=== PATIENT | female | born 1960 | race Caucasian/White ===

== ENCOUNTER 2019-09-11 17:13 | Emergency (ER) | payer BC ==
[~2019-09-11] VITALS: Ht 167.6 cm; Wt 100.0 kg
[2019-09-11] MEDS ORDERED: ASPIRIN 81MG TABLET PO ONE (18:00)
[2019-09-11] MEDS ORDERED: VISCOUS LIDOCAINE 2% 15 ML UDC PO ONE (18:00)
[2019-09-11] MEDS ORDERED: MAGNESIUM/ALUMINUM HYDROXIDE/SIMETHICONE 30ML UDC PO ONE (18:00)
[2019-09-11 18:36] LABS: CHLORIDE 109 mEq/L (98-107); EOSINOPHILS % 1.5 % (0.0-5.0); HEMOGLOBIN. 13.6 g/dL (12.0-16.0); LYMPHOCYTES % 17.4 % (20.0-50.0); MEAN CORPUSCULAR HEMOGLOBIN 29.3 pg (28.0-32.0); MEAN CORPUSCULAR VOLUME 88.3 fL (81.0-99.0); MEAN PLATELET VOLUME 8.3 fl (7.4-10.4); MONOCYTES % 7.2 % (2.0-8.0); NEUTROPHILS % 72.9 % (40.0-76.0); PLATELET 318 x1000/uL (130-400); RED BLOOD CELL COUNT 4.65 mill/uL (4.2-5.4)
[2019-09-11 19:56] VITALS: BP 145/98
== END 2019-09-11 19:57 | disposition home or self-care (01) ==
LOC: ER 17:13
DX: R07.89 Other chest pain (principal); I10 Essential (primary) hypertension
CPT/HCPCS: 36415; 71045; 80053; 83880; 84484; 85025; 93005; 99284; Z7610

== ENCOUNTER 2019-09-17 12:04 | Emergency (ER) | payer BC ==
[~2019-09-17] VITALS: Ht 170.2 cm; Wt 100.0 kg
[2019-09-17 12:11] VITALS: BP 168/86
== END 2019-09-17 14:58 | disposition home or self-care (01) ==
LOC: ER 12:04
DX: R07.9 Chest pain, unspecified (principal)
CPT/HCPCS: 99281